=== PATIENT | male | born 1980 | race Caucasian/White ===

== ENCOUNTER 2016-08-08 08:07 | Emergency (ER) | payer OTHER ==
[~2016-08-08] VITALS: Ht 167.6 cm; Wt 61.3 kg
[~2016-08-08 08:07] MED LIST: BENADRYL25 MG PO; CLINDAMYCIN HC300 MG PO; NOHOMEMEDS
[2016-08-08 09:30] LABS: HEMATOCRIT 45.3 % (38.0-50.0); MCH 30.6 PG (29.0-34.0); MCHC 34.2 G/DL (30.0-36.0); MCV 89.5 FL (86-99); MEAN PLAT.VOLUME 9.1 uM^3 (9.0-12.4); PLATELET COUNT 271 K/uL (156-360); RBC DIS.WIDTH-CV 12.7 % (11.8-14.6); RBC DIS.WIDTH-SD 41.7 % (39-53); RED BLOOD COUNT 5.06 M/uL (4.00-5.50); WHITE BLOOD COUNT 14.1 K/uL (4.1-10.2)
[2016-08-08 09:38] LABS: CHLORIDE 105 mEq/L (99-109); POTASSIUM 3.8 mEq/L (3.7-5.4); SODIUM 139 mEq/L (136-147)
[2016-08-08 09:40] LABS: GLUCOSE 128 mg/dL (70-99)
[2016-08-08 09:42] LABS: ANION GAP 8 MEQ/L (2-14)
[2016-08-08 09:43] LABS: SERUM ETHYL ALCOHOL < 10 mg/dL
[2016-08-08 09:44] LABS: GFR ESTIMATE (CALCULATED) > 59 mL/min/
[2016-08-08 09:45] LABS: UREA NITROGEN (BUN) 14 mg/dL (9-23)
[2016-08-08 11:49] LABS: THC CANNABINOIDS PRESUMPTIVE POSITIVE (50 ng/mL)
[2016-08-08 11:50] LABS: ADD MEDTOX COMMENT Y; AMPHETAMINE NEGATIVE (500 ng/mL); BARBITURATES NEGATIVE (200 ng/mL); BENZODIAZEPINES NEGATIVE (150 ng/mL); COCAINE PRESUMPTIVE POSITIVE (150 ng/mL); INTERNAL CONTROLS VALID? YES; METHADONE NEGATIVE (200 ng/mL); METHAMPHETAMINE NEGATIVE (500 ng/mL); OPIATES (MORPHINE) NEGATIVE (100 ng/mL); OXYCODONE PRESUMPTIVE POSITIVE (100 ng/mL); PHENCYCLIDINE NEGATIVE (25 ng/mL); PROPOXYPHENE NEGATIVE (300 ng/mL); TRICYCLIC ANTIDEPRESSANTS NEGATIVE (300 ng/mL)
[2016-08-08] MEDS ORDERED: NAPROSYN500 MG PO (14:19)
[2016-08-08 14:56] VITALS: BP 134/95
== END 2016-08-08 14:57 | disposition home or self-care (01) ==
LOC: EME 08:07 → EXP 08:07
PROVIDERS: Nurse Practitioner Family
DX: S12.600A Unspecified displaced fracture of seventh cervical vertebra, initial encounter for closed fracture (principal); S42.101A Fracture of unspecified part of scapula, right shoulder, initial encounter for closed fracture; S22.42XA Multiple fractures of ribs, left side, initial encounter for closed fracture; S22.31XA Fracture of one rib, right side, initial encounter for closed fracture; V49.10XA Passenger injured in collision with unspecified motor vehicles in nontraffic accident, initial encounter
CPT/HCPCS: 70450; 71260; 72125; 72128; 72129; 72131; 72132; 73030; 73610; 74177; 80048; 84999; 85027; 99281; 99285; G0480; J1885; J3010; J7030